=== PATIENT | female | born 1995 | race Caucasian/White ===

== ENCOUNTER 2017-08-03 16:35 | Emergency (ER) | payer SELFPAY | END 2017-08-03 19:10 | disposition home or self-care (01) | LOC: ER 19:10 | DX: O26.892 Other specified pregnancy related conditions, second trimester (principal); N89.8 Other specified noninflammatory disorders of vagina; Z88.8 Allergy status to other drugs, medicaments and biological substances; Z3A.16 16 weeks gestation of pregnancy | CPT/HCPCS: 76815; 99284 ==